=== PATIENT | female | born 1935 | race Native Hawaiian/Other Pacific Islander ===

== ENCOUNTER 2016-09-22 08:01 | Emergency (ER) | payer MEDICARE ==
[2016-09-22] MEDS ORDERED: FENTANYL 100 MCG/2 ML VIAL ONE (08:41)
[2016-09-22] MEDS ORDERED: ESMOLOL 250 ML IV ONE (08:41)
[2016-09-22 09:31] LABS: BASO % 0.4 % (0.2-1.0); EOS # 0.2 (0.0-0.5); EOS % 2.6 % (0.9-2.9); HEMATOCRIT 36.7 % (37.0-47.0); IMM NEUT% 0.4 % (0-1); LYMPH # 1.1 (1.0-4.8); LYMPH % 15.5 % (15-45); MEAN CELL VOLUME 90.4 fl (81.0-99.0); MEAN CORPUSCULAR HEMOGLOBIN 29.6 pg (27.0-31.0); MEAN CORPUSCULAR HGB CONC 32.7 g/dl (33.0-37.0); MEAN PLATELET VOLUME 9.6 fl (7.4-10.4); MONO # 0.7 (0.0-0.8); MONO % 9.4 % (4-12); NEUT % 71.7 % (43-75); PLATELET COUNT 234 K/mm3 (130-400); RED CELL DISTRIBUTION WIDTH 14.7 % (11.5-14.5)
[2016-09-22 09:39] LABS: INR 1.53; PROTHROMBIN TIME 16.5 SECONDS (9.3-11.4)
[2016-09-22] MEDS: IOPAMIDOL 370 (76%) IV.SOLN 150 ML IV ONE (09:40)
[2016-09-22 09:43] LABS: ALB/GLOB RATIO 1.2 (>1.0); ALBUMIN 4.2 gm/dL (3.5-5.7); CALCIUM 9.7 mg/dL (8.6-10.3); MAGNESIUM 1.8 mg/dL (1.9-2.7)
[2016-09-22 09:46] LABS: TROPONIN I 0.03 ng/ml (0.0-0.06)
[2016-09-22 09:50] LABS: CKMB ISOENZYME 2.1 ng/ml (0.6-6.3)
--- NOTE | 2016-09-22 10:45 | CT ---
CHEST W/ CON, ABD W/ CON COMPARISON: Chest 2 views, 12/15/2015 HISTORY: Pain between shoulder blades. Recent TAVR. Check for dissection. Technique: Intravenous injection 145 mL Isovue 370. Using a [employer] Aquilion [address], images were obtained through the thorax. An automated dose reduction technique was used to minimize patient radiation dose. Dose information: CTDIvol (mGy): 25.70 DLP(mGycm): 1363.40 FINDINGS: Lungs: Normal. Trachea and bronchi: Normal. Heart and vessels: Satisfactory appearance of the prosthetic aortic valve. No aortic dissection or aneurysm. No pulmonary embolism. Mediastinum and kiana: Normal. Esophagus: Large hiatal hernia. Pleura and pericardium: Normal. Chest wall and bones: No lytic or blastic lesions. 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 FINDINGS (abdomen with contrast): Aorta: No dissection. Liver: Normal. Color: Cholecystectomy Bile ducts: Normal. Pancreas: Normal. Spleen: Calcified granuloma. Adrenal glands: All. Kidneys: Normal. Proximal ureters: Normal. Inferior vena cava: Normal. Lymph nodes: Normal. Gastrointestinal track: Normal. Bones: L4-S1 surgical fusion. IMPRESSION: 1. No aortic dissection. No pulmonary embolus and. 2. Large hiatal hernia. 3. Incidental findings include degenerative changes in the spine, L4-S1 surgical fusion, cholecystectomy, splenic granuloma. The results were discussed with Hardeep Collins M.D. 09/22/2016 at 10:30.
[2016-09-22 12:10] LABS: TROPONIN I 0.05 ng/ml (0.0-0.06)
[2016-09-22 12:15] LABS: CKMB ISOENZYME 2.3 ng/ml (0.6-6.3)
== END 2016-09-22 13:31 | disposition home or self-care (01) ==
LOC: ED 08:01
DX: R07.9 Chest pain, unspecified (principal); I50.9 Heart failure, unspecified; J44.9 Chronic obstructive pulmonary disease, unspecified; Z86.718 Personal history of other venous thrombosis and embolism; Z79.01 Long term (current) use of anticoagulants
CPT/HCPCS: 83880; 85025; 82553 ×2; 80053; 83735; 85610; 84484 ×2; 36415 ×2; 74160; 71260; 99284 ×2; 96374; 93005 ×3; J3490; J3010; Q9967